=== PATIENT | male | born 2005 | race Caucasian/White ===

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

== ENCOUNTER 2023-01-05 11:30 | Outpatient (RCR) | payer BC, MEDICAID | END 2023-01-26 15:00 | disposition home or self-care (01) | PROVIDERS: ATTEND Orthopaedic Surgery | DX: Z98.890 Other specified postprocedural states (principal) ==